=== PATIENT | male | born 1955 | race Caucasian/White ===

== ENCOUNTER 2017-07-08 04:23 | Emergency (ER) | payer OTHER ==
[2017-07-08 04:36] VITALS: O2SAT 99
--- NOTE | 2017-07-08 04:42 | C.PDOC ---
History Of Present Illness The patient presents to the ED for evaluation of acute urinary retention. Patient states his last void was late last night. Patient also reports taking Flomax at home. Patient denies fever, chills. Time Seen by Provider: 07/08/17 04:39 Chief Complaint (Nursing): Male Genitourinary History Per: Patient History/Exam Limitations: no limitations Onset/Duration Of Symptoms: Hrs Current Symptoms Are (Timing): Still Present Severity: Moderate Pain Scale Rating Of: 5 Associated Symptoms: denies: Fever, Chills Alleviating Factors: None Recent travel outside of the [place]: No Additional History Per: Patient Past Medical History Reviewed: Historical Data, Nursing Documentation, Vital Signs Vital Signs: Last Vital Signs Temp 97.8 F 07/08/17 04:26 Pulse 61 07/08/17 04:26 Resp 20 07/08/17 04:26 BP 154/72 H 07/08/17 04:26 Pulse Ox 99 07/08/17 05:24 - Medical History PMH: Benign Prostatic Hyperplasia Surgical History: No Surg Hx - [facility] Procedures INSERT INDWELLING CATH (04/18/15) Family History: States: Unknown Family Hx - Social History Hx Tobacco Use: No Hx Alcohol Use: No Hx Substance Use: No - Immunization History Hx Tetanus Toxoid Vaccination: Yes Hx Influenza Vaccination: Yes Hx Pneumococcal Vaccination: Yes Review Of Systems Constitutional: Negative for: Fever, Chills Gastrointestinal: Negative for: Nausea, Vomiting Genitourinary: Positive for: Other (urinary retention ). Negative for: Dysuria , Frequency, Hematuria Skin: Negative for: Rash, Lesions, Jaundice, Bruising Neurological: Negative for: Weakness, Numbness Physical Exam - Physical Exam Appears: Non-toxic, No Acute Distress Skin: Normal Color, Warm, Dry Head: Normacephalic Eye(s): bilateral: Normal Inspection Oral Mucosa: Moist Gastrointestinal/Abdominal: Soft, Tenderness (suprapubic ), Distention (bladder ), No Guarding, No Rebound Extremity: Normal ROM Extremity: Bilateral: Atraumatic Neurological/Psych: Oriented x3, Normal Speech, Normal Cognition Gait: Steady ED Course And Treatment O2 Sat by Pulse Oximetry: 99 (on RA) Pulse Ox Interpretation: Normal Progress Note: I've placed an 18 Fr smith without any difficulty. Pt with instant relief. Aprox 500 cc of clear urine. Pt tolerated the procedure well Disposition Counseled Patient/Family Regarding: Studies Performed, Diagnosis, Need For Followup - Disposition Referrals: Amado Ordonez MD [Staff Provider] - Disposition: HOME/ ROUTINE Disposition Time: 04:40 Condition: FAIR Instructions: Urinary Retention in Men (ED), Smith Catheter Placement and Care (ED), Urinary Leg Bag (GEN) Forms: naaya (Lithuanian) Print Language: HONG KONGER - Clinical Impression Clinical Impression: Urinary retention - Scribe Statement The provider has reviewed the documentation as recorded by the Scribe (Marianela Vargas) Provider Attestation: All medical record entries made by the Scribe were at my direction and personally dictated by me. I have reviewed the chart and agree that the record accurately reflects my personal performance of the history, physical exam, medical decision making, and the department course for this patient. I have also personally directed, reviewed, and agree with the discharge instructions and disposition.
[2017-07-08 05:34] VITALS: BP 137/84; PULSE 58; RESP 17; TEMP 97.9
== END 2017-07-08 05:37 | disposition home or self-care (01) ==
LOC: C.ER 04:23
DX: R33.8 Other retention of urine (principal)

== ENCOUNTER 2017-07-11 09:46 | Emergency (ER) | payer OTHER ==
[2017-07-11 10:03] VITALS: BP 122/72; PULSE 66; RESP 18; TEMP 97.8; O2SAT 98
--- NOTE | 2017-07-11 10:23 | C.PDOC ---
History Of Present Illness 62 yr old male presents to the ER requesting jeff removal. Patient states it was placed on 07/08 for urinary retention. States he wants it out "because I have to work today". Patient denies fever, chills, chest pain, SOB, nausea, vomiting, abdominal pain, back pain, weakness or numbness. REQUESTING JEFF REMOVAL. PLACED 07/08 FOR URINARY RETENTION. DENIES PAIN. STATES WANTS IT OUT "BC I HAVE TO WORK TODAY". NO OTHER ASSOC SX EXAM NAD ABD NEG +JEFF W LEG BAG IN PLACE, DRAINING. MDM ADVISED POSSIBLE RECUR OF RETENTION. PENDING FU DR ORDONEZ Time Seen by Provider: 07/11/17 10:06 Chief Complaint (Nursing): Male Genitourinary History Per: Patient History/Exam Limitations: no limitations Onset/Duration Of Symptoms: Days Current Symptoms Are (Timing): Still Present Past Medical History Reviewed: Historical Data, Nursing Documentation, Vital Signs Vital Signs: Last Vital Signs Temp 97.8 F 07/11/17 10:02 Pulse 66 07/11/17 10:02 Resp 18 07/11/17 10:02 BP 122/72 07/11/17 10:02 Pulse Ox 98 07/11/17 10:23 - Medical History PMH: Benign Prostatic Hyperplasia - [employer] Procedures INSERT INDWELLING CATH (04/18/15) Family History: States: No Known Family Hx - Social History Hx Tobacco Use: No Hx Alcohol Use: No Hx Substance Use: No - Immunization History Hx Tetanus Toxoid Vaccination: Yes Hx Influenza Vaccination: Yes Hx Pneumococcal Vaccination: Yes Review Of Systems Except As Marked, All Systems Reviewed And Found Negative. Constitutional: Negative for: Fever, Chills Cardiovascular: Negative for: Chest Pain Respiratory: Negative for: Shortness of Breath Gastrointestinal: Negative for: Nausea, Vomiting, Abdominal Pain Musculoskeletal: Negative for: Back Pain Neurological: Negative for: Weakness, Numbness Physical Exam - Physical Exam Appears: Non-toxic, No Acute Distress Skin: Normal Color, Warm, Dry, No Rash Head: Atraumatic, Normacephalic Respiratory: Normal Breath Sounds, No Rales, No Rhonchi, No Stridor, No Wheezing Gastrointestinal/Abdominal: Normal Exam, Soft, No Tenderness, No Guarding, No Rebound Male Genital: Other ((+) Jeff with leg bag in place, draining.) Extremity: Normal ROM, No Swelling Neurological/Psych: Oriented x3, Normal Speech, Normal Motor, Normal Sensation ED Course And Treatment O2 Sat by Pulse Oximetry: 98 (RA) Pulse Ox Interpretation: Normal Disposition Counseled Patient/Family Regarding: Diagnosis, Need For Followup - Disposition Referrals: Amado Ordonez MD [Staff Provider] - Disposition: HOME/ ROUTINE Disposition Time: 10:21 Condition: GOOD Additional Instructions: USTED HICKS SIDO ADVERTIDO DE RIESGO DE RECURRENCIA DE DIFICULTAD URINATING. CONTINUAR MEDICAMENTOS ACTUALES. SEGUIMIENTO CON UROLOGA PREVIAMENTE AVISADA Instructions: Urinary Retention in Men (ED) Forms: VILOOP (Macedonian) Print Language: TAMAZIGHT - Clinical Impression Clinical Impression: Encounter for Jeff catheter removal - Scribe Statement The provider has reviewed the documentation as recorded by the Scribe Rhona Arora Provider Attestation: All medical record entries made by the Scribe were at my direction and personally dictated by me. I have reviewed the chart and agree that the record accurately reflects my personal performance of the history, physical exam, medical decision making, and the department course for this patient. I have also personally directed, reviewed, and agree with the discharge instructions and disposition.
== END 2017-07-11 10:52 | disposition home or self-care (01) ==
LOC: C.ER 09:46
DX: Z46.6 Encounter for fitting and adjustment of urinary device (principal)

== ENCOUNTER 2018-01-26 21:29 | Emergency (ER) | payer MEDICAID, OTHER ==
[2018-01-26 22:36] VITALS: RESP 18; O2SAT 98
--- NOTE | 2018-01-26 23:55 | C.PDOC ---
History Of Present Illness 62 years old male with Hx of BPH presents to ED with complaints of urinary retention. Denies fever, chills, nausea, vomiting or any other complaints. Chief Complaint (Nursing): Male Genitourinary History Per: Patient History/Exam Limitations: no limitations Onset/Duration Of Symptoms: Hrs Current Symptoms Are (Timing): Still Present Associated Symptoms: Urinary Symptoms. denies: Fever, Chills, Nausea, Vomiting Alleviating Factors: None Recent travel outside of the [place]: No Past Medical History Reviewed: Historical Data, Nursing Documentation, Vital Signs Vital Signs: Last Vital Signs Temp 98.0 F 01/26/18 23:05 Pulse 57 L 01/26/18 23:05 Resp 18 01/26/18 23:05 BP 129/71 01/26/18 23:05 Pulse Ox 98 01/27/18 00:41 - Medical History PMH: Benign Prostatic Hyperplasia - [facility] Procedures INSERT INDWELLING CATH (04/18/15) Family History: States: Unknown Family Hx - Social History Hx Tobacco Use: No Hx Alcohol Use: No Hx Substance Use: No - Immunization History Hx Tetanus Toxoid Vaccination: Yes Hx Influenza Vaccination: Yes Hx Pneumococcal Vaccination: Yes Review Of Systems Constitutional: Negative for: Fever, Chills Gastrointestinal: Negative for: Nausea, Vomiting, Abdominal Pain, Diarrhea Genitourinary: Positive for: Other (Urinary retention) Skin: Negative for: Rash Neurological: Negative for: Weakness, Numbness Physical Exam - Physical Exam Appears: Non-toxic, No Acute Distress Skin: Normal Color, Warm, Dry Head: Atraumatic, Normacephalic Eye(s): bilateral: Normal Inspection Oral Mucosa: Moist Neck: Supple Chest: Symmetrical, No Tenderness Cardiovascular: Rhythm Regular Respiratory: Normal Breath Sounds, No Decreased Breath Sounds, No Rales, No Rhonchi, No Wheezing Gastrointestinal/Abdominal: Soft, Tenderness (suprapubic ), No Distention, Other (Distended bladder) Neurological/Psych: Oriented x3, Normal Speech, Normal Cognition ED Course And Treatment O2 Sat by Pulse Oximetry: 98 (RA) Pulse Ox Interpretation: Normal Progress Note: Patient has a leg bag and will follow up with his urologist Disposition - Disposition Referrals: Nazario Mackenzie MD [Staff Provider] - Disposition: HOME/ ROUTINE Disposition Time: 22:15 Condition: IMPROVED Additional Instructions: Thank you for letting us take care of you today. The emergency medical care you received today was directed at your acute symptoms. If you were prescribed any medication, please fill it and take as directed. It may take several days for your symptoms to resolve. Return to the Emergency Department if your symptoms worsen, do not improve, or if you have any other problems. Please contact your doctor or call one of the physicians/clinics you have been referred to that are listed on the Patient Visit Information form that is included in your discharge packet. Bring any paperwork you were given at discharge with you along with any medications you are taking to your follow up visit. Our treatment cannot replace ongoing medical care by a primary care provider (PCP) outside of the emergency department. Thank you for allowing the [facility] team to be part of your care today. Continue taking the Flomax as directed. Follow up with your urologist or the one referred to you in 2-3 days for re- evaluation and further management. Nell por dejarnos atenderlo hoy. La atencin mdica de emergencia que recibi hoy estaba dirigida a leonora sntomas agudos. Si le prescribieron algn medicamento, llnelo y tome segn las indicaciones. Leonora sntomas pueden tardar varios batista en resolverse. Regrese al Departamento de Emergencia si leonora s ntomas empeoran, no mejoran o si tiene algn otro problema. Comunquese con strickland mdico o llame a naseem de los mdicos / clnicas a los que lemus sido referido que figura en el formulario de Informacin de visita del paciente que se incluye en strickland paquete de marilia. Traiga todos los documentos que recibi al momento del marilia junto con los medicamentos que est tomando en strickland visita de seguimiento. Nuestro tratamiento no puede reemplazar la atencin mdica en curso por parte de un proveedor de atencin primaria (PCP) fuera del departamento de emergencias. Nell por permitir que el equipo de [facility] sea parte de strickland cuidado hoy. Contine tomando Flomax segn las indicaciones. Radha un seguimiento con strickland urlogo o el que se le remiti en 2 o 3 batista para mildred nueva evaluacin y administracin adicional. Instructions: Urinary Retention (DC) Forms: Gen Discharge Inst Peruvian, x.ai (Peruvian) Print Language: MONEGASQUE - Clinical Impression Clinical Impression: Urinary retention - Scribe Statement The provider has reviewed the documentation as recorded by the Scribe Booker Abbott All medical record entries made by the Scribe were at my direction and personally dictated by me. I have reviewed the chart and agree that the record accurately reflects my personal performance of the history, physical exam, medical decision making, and the department course for this patient. I have also personally directed, reviewed, and agree with the discharge instructions and disposition.
[2018-01-27 00:01] VITALS: BP 129/71; PULSE 57; TEMP 98
== END 2018-01-26 23:07 | disposition home or self-care (01) ==
LOC: C.ER 21:29
DX: N40.1 Benign prostatic hyperplasia with lower urinary tract symptoms (principal); R33.8 Other retention of urine

== ENCOUNTER 2018-03-24 06:43 | Emergency (ER) | payer MEDICAID ==
[2018-03-24 06:54] VITALS: PULSE 60; RESP 16
--- NOTE | 2018-03-24 08:15 | C.PDOC ---
History Of Present Illness 63 y/o male with hx bph, on flomax, c/o being unable to urinate since midnight and c/o lower abdominal discomfort. denies fever, chills, n/v/d. Time Seen by Provider: 03/24/18 07:27 Chief Complaint (Nursing): Male Genitourinary History Per: Patient History/Exam Limitations: no limitations Onset/Duration Of Symptoms: Hrs (7) Current Symptoms Are (Timing): Still Present Severity: Moderate Quality Of Discomfort: "Pain" Associated Symptoms: Urinary Symptoms (unable to urinate). denies: Fever, Chills, Nausea, Vomiting Past Medical History Reviewed: Historical Data, Nursing Documentation, Vital Signs Vital Signs: Last Vital Signs Temp 98.2 F 03/24/18 09:51 Pulse 60 03/24/18 09:51 Resp 16 03/24/18 09:51 BP 122/70 03/24/18 09:51 Pulse Ox 97 03/24/18 10:46 - Medical History PMH: Benign Prostatic Hyperplasia - [facility] Procedures INSERT INDWELLING CATH (04/18/15) Family History: States: Unknown Family Hx - Social History Hx Tobacco Use: No Hx Alcohol Use: No Hx Substance Use: No - Immunization History Hx Tetanus Toxoid Vaccination: Yes Hx Influenza Vaccination: Yes Hx Pneumococcal Vaccination: Yes Review Of Systems Constitutional: Negative for: Fever, Chills Respiratory: Negative for: Cough, Shortness of Breath Gastrointestinal: Positive for: Abdominal Pain (suprapubic). Negative for: Nausea, Vomiting Genitourinary: Negative for: Dysuria, Frequency, Incontinence Neurological: Negative for: Weakness Physical Exam - Physical Exam Appears: Non-toxic, No Acute Distress Skin: Warm, Dry Head: Atraumatic, Normacephalic Neck: Supple Cardiovascular: Rhythm Regular, No Murmur Respiratory: No Decreased Breath Sounds, No Wheezing Gastrointestinal/Abdominal: Soft, No Tenderness (post smith insertion), No Distention, No Guarding, No Rebound Extremity: No Pedal Edema ED Course And Treatment - Laboratory Results Result Diagrams: 03/24/18 08:40 03/24/18 08:40 O2 Sat by Pulse Oximetry: 97 Medical Decision Making Medical Decision Making: pt with urinary retention since midnight; bladder scan was done by RN with 450 ml noted; smith was inserted before my exam with suprapubic pain resolved. pt has had retention multiple times in past; last in january 2018; pt sts he saw urologist after that and next appt in in april 922 pt with normal labs, ua positive for blood; d/c home with leg bag, f/ urology. continue flomax. Disposition Counseled Patient/Family Regarding: Studies Performed, Diagnosis, Need For Followup - Disposition Referrals: Edwina Mackenzie MD [Staff Provider] - Disposition: HOME/ ROUTINE Disposition Time: 09:26 Condition: IMPROVED Additional Instructions: Please call your urologist or Dr Abdiel Mackenzie to make soonest appointment. Continue to take Flomax as prescribed. Return to ER for any worsening symptoms. Llame a strickland urlogo o al Dr. Abdiel Mackenzie para concertar la marcus ms pronto. Contin e tomando Flomax segn lo recetado. Regrese a la ann-marie de emergencias por cualquier empeoramiento de los sntomas. Instructions: Urinary Retention (DC) Forms: Gen Discharge Inst Iraqi, [facility] (Iraqi) Print Language: MEXICAN - Clinical Impression Clinical Impression: Urinary retention, Urinary catheter insertion/adjustment/removal
[2018-03-24 08:45] LABS: BASO % 0.6 % (0.0-2.0); EOS # 0.1 K/uL (0.0-0.7); EOS % 1.1 % (0.0-4.0); HEMOGLOBIN 13.6 g/dL (12.0-18.0); LYMPH # 1.1 K/uL (1.0-4.3); LYMPH % 21.7 % (20.0-40.0); MEAN CELL VOLUME 87.3 fL (80.0-94.0); MEAN CORPUSCULAR HEMOGLOBIN 28.8 pg (27.0-31.0); MEAN PLATELET VOLUME 9.2 fL (7.2-11.7); MONO # 0.3 K/uL (0.0-0.8); MONO % 5.2 % (0.0-10.0); NEUT # 3.8 K/uL (1.8-7.0); NEUT % 71.4 % (50.0-75.0); RBC 4.73 Mil/uL (4.40-5.90); RED CELL DISTRIBUTION WIDTH 13.8 % (11.5-14.5); WHITE BLOOD COUNT 5.3 K/uL (4.8-10.8)
[2018-03-24 08:51] LABS: URINE BACTERIA RARE (<OCC); URINE BILIRUBIN NEGATIVE (NEGATIVE); URINE BLOOD 2+ (NEGATIVE); URINE CLARITY Clear (Clear); URINE COLOR Straw (YELLOW); URINE GLUCOSE (UA) NORMAL (Normal); URINE LEUKOCYTE ESTERASE NEG Leu/uL (Negative); URINE PROTEIN NEGATIVE (NEGATIVE); URINE UROBILINOGEN NORMAL mg/dL (0.2-1.0)
[2018-03-24 08:58] LABS: BLOOD UREA NITROGEN 14 mg/dL (9-20); CALCIUM 9.1 mg/dl (8.6-10.4); GFR AFRICAN-AMERICAN > 60; GFR NON-AFRICAN AMERICAN > 60
[2018-03-24 09:53] VITALS: BP 122/70; TEMP 98.2
[2018-03-24 10:46] VITALS: O2SAT 97
== END 2018-03-24 09:51 | disposition home or self-care (01) ==
LOC: C.ER 06:43
DX: N40.1 Benign prostatic hyperplasia with lower urinary tract symptoms (principal); R33.8 Other retention of urine

== ENCOUNTER 2018-11-25 09:58 | Inpatient (IN) | payer MEDICAID ==
--- NOTE | 2018-11-25 11:11 | C.PDOC ---
History Of Present Illness 63 y/o male presents to the ED complaining of syncopal episode at home one hour prior to arrival. As per family, patient passed out while urinating and fell sustaining a laceration to the back of the head. Patient is currently compla ining of headache. Denies any numbness, weakness, dizziness, visual changes, nausea, vomiting or any other symptoms. Time Seen by Provider: 11/25/18 10:14 Chief Complaint (Nursing): Syncope History Per: Patient, Family History/Exam Limitations: no limitations Onset/Duration Of Symptoms: Hrs Current Symptoms Are (Timing): Still Present Number Of Syncopal Episodes: 1 Activity At Onset Of Symptoms: Standing Fall Associated With With Symptoms: Yes, Positive Injury Past Medical History Reviewed: Historical Data, Nursing Documentation, Vital Signs Vital Signs: Last Vital Signs Temp 97.8 F 11/25/18 10:05 Pulse 69 11/25/18 10:05 Resp 16 11/25/18 10:05 BP 145/88 11/25/18 10:05 Pulse Ox 100 11/25/18 10:05 - Medical History PMH: Benign Prostatic Hyperplasia Surgical History: No Surg Hx - [facility] Procedures INSERT INDWELLING CATH (04/18/15) Family History: States: No Known Family Hx - Social History Hx Tobacco Use: No Hx Alcohol Use: No Hx Substance Use: No - Immunization History Hx Tetanus Toxoid Vaccination: Yes Hx Influenza Vaccination: Yes Hx Pneumococcal Vaccination: Yes Review Of Systems Except As Marked, All Systems Reviewed And Found Negative. Eyes: Negative for: Vision Change Gastrointestinal: Negative for: Nausea, Vomiting Skin: Positive for: Other (laceration to back of head) Neurological: Positive for: Headache. Negative for: Weakness, Numbness, Dizziness Physical Exam - Physical Exam Appears: Non-toxic, No Acute Distress Skin: Warm, Dry, No Rash Head: Normacephalic, Laceration (4.5cm stellate shaped laceration to occipital scalp) Eye(s): bilateral: Normal Inspection, PERRL, EOMI Nose: Normal Oral Mucosa: Moist Neck: Normal ROM, No Midline Cervical Tenderness, No Paracervical Tenderness, Supple Chest: Symmetrical Cardiovascular: Rhythm Regular Respiratory: No Rales, No Rhonchi, No Wheezing Gastrointestinal/Abdominal: Soft, No Tenderness, No Guarding, No Rebound Back: No Vertebral Tenderness, No Decreased ROM, No Paraspinal Tenderness Extremity: Bilateral: Atraumatic, Normal Color And Temperature, Normal ROM Neurological/Psych: Oriented x3, Normal Speech, Normal Motor, Normal Sensation Gait: Other (ambulating without difficulty) ED Course And Treatment - Laboratory Results Result Diagrams: 11/25/18 11:41 11/25/18 11:41 O2 Sat by Pulse Oximetry: 100 (RA) Pulse Ox Interpretation: Normal Laceration - Laceration Repair occipital scalp Wound Length (In cm): 4.5 Description Of Wound: Stellate Wound Cleansed With: Betadine, Sterile Saline Anesthesia: Lidocaine 1% Wound Examination: Irrigated With Saline, No FB With Wound Exploration, No Tendon Injury With Wound Exploration Wound Closure: [place] (17 evaristo outside ) Suture Technique And Material Used: Vicryl (3 stitches inside ) Wound Complexity: Intermediate Medical Decision Making Medical Decision Making: Plan - CT Head - EKG - Bloodwork Laceration repaired without difficulty. Patient tolerated procedure well. Patient instructed on wound care and advised to come back for staple removal. C ase discussed with Dr. Bruno, neurologist technician semiconductor development. Patient stable and ready for discharge. Disposition - Disposition Disposition: HOSPITALIZED Condition: SERIOUS - PA / PARKING ENFORCEMENT TECHNICIAN / Resident Statement MD/DO has reviewed & agrees with the documentation as recorded. - Scribe Statement The provider has reviewed the documentation as recorded by the Scribteresa Portillo All medical record entries made by the Zoraidaibteresa were at my direction and personally dictated by me. I have reviewed the chart and agree that the record accurately reflects my personal performance of the history, physical exam, medical decision making, and the department course for this patient. I have also personally directed, reviewed, and agree with the discharge instructions and disposition.
[2018-11-25 11:52] LABS: BASO % 0.7 % (0.0-2.0); EOS # 0.2 K/uL (0.0-0.7); EOS % 3.4 % (0.0-4.0); HEMOGLOBIN 14.3 g/dL (12.0-18.0); LYMPH # 1.8 K/uL (1.0-4.3); MEAN CELL VOLUME 85.9 fL (80.0-94.0); MEAN CORPUSCULAR HEMOGLOBIN 27.8 pg (27.0-31.0); MEAN CORPUSCULAR HGB CONC 32.4 g/dL (33.0-37.0); MEAN PLATELET VOLUME 9.3 fL (7.2-11.7); MONO # 0.4 K/uL (0.0-0.8); MONO % 6.4 % (0.0-10.0); NEUT # 3.8 K/uL (1.8-7.0); NEUT % 60.5 % (50.0-75.0); RBC 5.14 Mil/uL (4.40-5.90); RED CELL DISTRIBUTION WIDTH 15.7 % (11.5-14.5); WHITE BLOOD COUNT 6.3 K/uL (4.8-10.8)
[2018-11-25 12:06] LABS: BLOOD UREA NITROGEN 13 mg/dL (9-20); CALCIUM 9.1 mg/dl (8.6-10.4); GFR NON-AFRICAN AMERICAN > 60
--- NOTE | 2018-11-25 12:09 | CT ---
Date of service: 11/25/2018 PROCEDURE: CT HEAD WITHOUT CONTRAST. HISTORY: head injury, r/o bleed COMPARISON: None available. TECHNIQUE: Axial computed tomography images were obtained through the head/brain without intravenous contrast. Radiation dose: Total exam DLP = 995.46 mGy-cm. This CT exam was performed using one or more of the following dose reduction techniques: Automated exposure control, adjustment of the mA and/or kV according to patient size, and/or use of iterative reconstruction technique. FINDINGS: BRAIN: Trace subdural hematoma is appreciated along the falx with associated local subarachnoid hemorrhage within adjacent sulci of the right frontal vertex posteriorly. No mass effect. No associated parenchymal edema. Otherwise, limited diffuse cerebral atrophy and chronic microangiopathy is seen in the cerebrum. No mass effect. VENTRICLES: Unremarkable. No hydrocephalus. CALVARIUM: No destructive bony lesion or displaced fracture identified including through the skullbase. Small laceration appears deep at the right parietal occipital scalp posteromedially with emphysema extending all the way to the outer table periosteum. PARANASAL SINUSES: Unremarkable as visualized. No significant inflammatory changes. MASTOID AIR CELLS: Unremarkable as visualized. No inflammatory changes. OTHER FINDINGS: None. IMPRESSION: Trace subdural hematoma along the superior falx extending into subarachnoid space of a few sulci of the right frontal lobe near the vertex. No associated fracture. No mass effect. Small but deep right parieto-occipital periosteal laceration. Mild age related neuro degenerative changes are appreciated as well, which are age-appropriate. Findings discussed with LILIA Reddy with written down and read back verification 11/25/2018 11:59 p.m..
[2018-11-25 12:12] LABS: ALB/GLOB RATIO 1.4 (1.0-2.1); ALBUMIN 4.4 g/dL (3.5-5.0); ALT/SGPT 13 U/L (21-72); AST/SGOT 41 U/L (17-59)
[2018-11-25 12:17] LABS: CK-MB 1.19 ng/mL (0.0-3.38)
[2018-11-25 12:34] LABS: PROTHROMBIN TIME 11.1 SECONDS (9.7-12.2)
--- NOTE | 2018-11-25 13:42 | CP.PCM.HP ---
<Ellen Adame - Last Filed: 11/25/18 18:51> History of Present Illness - History of Present Illness History of Present Illness: CC: s/p head laceration 2/2 fall Pt is a 63 year old male w/ pmhx of BPH w/ associated urinary retention, who presents to the ED for evaluation of head laceration 2/2 syncopal event. Pt reports he got up from bed to urinate and felt light headed for a moment. He then waited and it passed. He then continued to walk to the restroom, and as soon as he started urinated he felt light-headed once again and fainted. Pt reports he woke up on the bathroom floor with flood on the back of his head, and then walked to his son's room for help. Patient said he has a 10 year hx of BPH, and his flomax was recently doubled; he is also s/p prostate bx for further evaluation, POD #3. Pt denies prior syncopal events, headache, chest pain, palpitations, SOB, nausea, diarrhea. Pt does report chiquita colored urine s/p bx, but improving. pmhx: BPH pshx: prostate bx 11/22/18 meds flomax 0.8mg, finasteride 5mg allergies: NKDA sochx: denies famhx: DM Present on Admission - Present on Admission Any Indicators Present on Admission: No Review of Systems - Constitutional Constitutional: absent: Frequent Falls, Headache, Night Sweats - EENT Eyes: absent: Blurred Vision - Cardiovascular Cardiovascular: Syncope. absent: Chest Pain, Irregular Heart Rhythm, Palpitati ons, Rapid Heart Rate - Respiratory Respiratory: absent: Dyspnea - Gastrointestinal Gastrointestinal: absent: Diarrhea, Nausea - Genitourinary Genitourinary: Hematuria (s/p bx). absent: Dysuria - Musculoskeletal Musculoskeletal: absent: Muscle Weakness, Numbness - Neurological Neurological: Syncope. absent: Abnormal Gait, Confusion, Dizziness, Frequent Falls, Vertigo Past Patient History - Infectious Disease Hx of Infectious Diseases: None - Past Social History Smoking Status: Never Smoked - GENITOURINARY/GYNECOLOGICAL Hx Genitourinary Disorders: Yes - PSYCHIATRIC Hx Substance Use: No - SURGICAL HISTORY Hx Surgeries: No - ANESTHESIA Hx Anesthesia: No Meds Allergies/Adverse Reactions: Allergies Allergy/AdvReac Type Severity Reaction Status Date / Time No Known Allergies Allergy Verified 11/25/18 10:08 Physical Exam - Constitutional Appears: Non-toxic, No Acute Distress - Head Exam Head Exam: NORMOCEPHALIC Additional comments: right occipital horizontal laceration~3cm wide, 8mm deep. Not actively bleeding. - Eye Exam Eye Exam: EOMI, Normal appearance Pupil Exam: NORMAL ACCOMODATION - ENT Exam ENT Exam: Normal Exam - Neck Exam Neck exam: Positive for: Normal Inspection - Respiratory Exam Respiratory Exam: Clear to Auscultation Bilateral, NORMAL BREATHING PATTERN - Cardiovascular Exam Cardiovascular Exam: REGULAR RHYTHM, +S1, +S2. absent: Bradycardia, Tachycardia - GI/Abdominal Exam GI & Abdominal Exam: Normal Bowel Sounds, Soft. absent: Distended, Tenderness - Extremities Exam Extremities exam: Positive for: normal inspection. Negative for: calf tenderness, pedal edema - Neurological Exam Neurological exam: Alert, Oriented x3 Additional comments: 5/5 motor strength throughout field of vision intact - Psychiatric Exam Psychiatric exam: Normal Affect, Normal Mood - Skin Skin Exam: Dry, Normal Color, Warm Additional comments: skin visibly dry Results - Vital Signs Recent Vital Signs: Last Vital Signs Temp 97.8 F 11/25/18 10:05 Pulse 69 11/25/18 10:05 Resp 16 11/25/18 10:05 BP 145/88 11/25/18 10:05 Pulse Ox 100 11/25/18 11:18 - Labs Result Diagrams: 11/25/18 11:41 11/25/18 11:41 Labs: Laboratory Results - last 24 hr 11/25/18 11/25/18 11/25/18 10:10 11:41 11:41 WBC 6.3 RBC 5.14 Hgb 14.3 Hct 44.2 MCV 85.9 MCH 27.8 MCHC 32.4 L RDW 15.7 H Plt Count 203 MPV 9.3 Neut % (Auto) 60.5 Lymph % (Auto) 29.0 Mckean % (Auto) 6.4 Eos % (Auto) 3.4 Baso % (Auto) 0.7 Neut # (Auto) 3.8 Lymph # (Auto) 1.8 Mckean # (Auto) 0.4 Eos # (Auto) 0.2 Baso # (Auto) 0.0 PT INR APTT Sodium 136 Potassium 4.9 Chloride 100 Carbon Dioxide 28 Anion Gap 12 BUN 13 Creatinine 0.9 Est GFR ( Amer) > 60 Est GFR (Non-Af Amer) > 60 POC Glucose (mg/dL) 134 H Random Glucose 120 H Calcium 9.1 Total Bilirubin 1.0 AST 41 ALT 13 L D Alkaline Phosphatase 66 Total Creatine Kinase 116 CK-MB (Mass) 1.19 Troponin I < 0.0120 Total Protein 7.6 Albumin 4.4 Globulin 3.1 Albumin/Globulin Ratio 1.4 11/25/18 12:20 WBC RBC Hgb Hct MCV MCH MCHC RDW Plt Count MPV Neut % (Auto) Lymph % (Auto) Mckean % (Auto) Eos % (Auto) Baso % (Auto) Neut # (Auto) Lymph # (Auto) Mckean # (Auto) Eos # (Auto) Baso # (Auto) PT 11.1 INR 1.0 APTT 29 Sodium Potassium Chloride Carbon Dioxide Anion Gap BUN Creatinine Est GFR ( Amer) Est GFR (Non-Af Amer) POC Glucose (mg/dL) Random Glucose Calcium Total Bilirubin AST ALT Alkaline Phosphatase Total Creatine Kinase CK-MB (Mass) Troponin I Total Protein Albumin Globulin Albumin/Globulin Ratio Assessment & Plan - Assessment and Plan (Free Text) Assessment: 63 year old male w/ pmhx of BPH admitted for evaluation of syncopal event Plan: S/P Syncopal Event Rule out cardiac origin, possibly vagal or volume status related -monitor on telemetry -f/u JACOB x2 -f/u echo -Tylenol 650mg prn pain -NS @100 Subdural Hematoma -Head CT: trace subdural hematoma. Small but deep right parieto-occipital periosteal laceration -f/u am CT head to look for acute changes -AC contraindicated 2/2 bleed BPH -continue home meds flomax 0.8mg, Finasteride 5mg Ppx -VTE: SCDs, AC contraindicated 2/2 subdural HICKS -GI: not indicated Discussed with Dr. Mcfadden -Ellen Adame, PGY-1 <Haroon Mcfadden - Last Filed: 11/25/18 19:24> Results - Vital Signs Recent Vital Signs: Last Vital Signs Temp 98.1 F 11/25/18 15:00 Pulse 60 11/25/18 16:00 Resp 20 11/25/18 15:00 BP 120/68 11/25/18 15:00 Pulse Ox 100 11/25/18 16:09 - Labs Result Diagrams: 11/25/18 11:41 11/25/18 11:41 Labs: Laboratory Results - last 24 hr 11/25/18 11/25/18 11/25/18 10:10 11:41 11:41 WBC 6.3 RBC 5.14 Hgb 14.3 Hct 44.2 MCV 85.9 MCH 27.8 MCHC 32.4 L RDW 15.7 H Plt Count 203 MPV 9.3 Neut % (Auto) 60.5 Lymph % (Auto) 29.0 Mckean % (Auto) 6.4 Eos % (Auto) 3.4 Baso % (Auto) 0.7 Neut # (Auto) 3.8 Lymph # (Auto) 1.8 Mckean # (Auto) 0.4 Eos # (Auto) 0.2 Baso # (Auto) 0.0 PT INR APTT Sodium 136 Potassium 4.9 Chloride 100 Carbon Dioxide 28 Anion Gap 12 BUN 13 Creatinine 0.9 Est GFR ( Amer) > 60 Est GFR (Non-Af Amer) > 60 POC Glucose (mg/dL) 134 H Random Glucose 120 H Calcium 9.1 Total Bilirubin 1.0 AST 41 ALT 13 L D Alkaline Phosphatase 66 Total Creatine Kinase 116 CK-MB (Mass) 1.19 Troponin I < 0.0120 Total Protein 7.6 Albumin 4.4 Globulin 3.1 Albumin/Globulin Ratio 1.4 11/25/18 11/25/18 12:20 16:50 WBC RBC Hgb Hct MCV MCH MCHC RDW Plt Count MPV Neut % (Auto) Lymph % (Auto) Mckean % (Auto) Eos % (Auto) Baso % (Auto) Neut # (Auto) Lymph # (Auto) Mckean # (Auto) Eos # (Auto) Baso # (Auto) PT 11.1 INR 1.0 APTT 29 Sodium Potassium Chloride Carbon Dioxide Anion Gap BUN Creatinine Est GFR ( Amer) Est GFR (Non-Af Amer) POC Glucose (mg/dL) Random Glucose Calcium Total Bilirubin AST ALT Alkaline Phosphatase Total Creatine Kinase 94 CK-MB (Mass) 1.18 Troponin I < 0.0120 Total Protein Albumin Globulin Albumin/Globulin Ratio Attending/Attestation - Attestation I have personally seen and examined this patient.: Yes I have fully participated in the care of the patient.: Yes I have reviewed all pertinent clinical information: Yes Notes (Text): 11/25/18 19:20 Medical attending: Patient was seen and examined by me. Agree with the above note by the resident The patient was not in any acute distress when I came and saw him The patient as reported above had gone to the bathroom and as he was urinating reportedly had a syncopal episode and he was not sure how long he was out for. He then got back up and found his family member and they went to the hospital. He looked very well when we saw him. He had a CT scan suggestive of a small bleed, which the ER reportedly spoke with surgery and for now we will monitor and repeat the CT of the head again There will be an echo as well as additional cardiac enyzmes The patient is taking two tablets of flomax and one of finasteride for his BPH and I get the feeling he is low volume status and then ontop of that had a valsalva like moment and therefore passed out in the bathroom. Hopefully he will remains asymptomatic with IVF and if the studies are negative can be DC soon Haroon Mcfadden
[2018-11-25 17:23] LABS: CK-MB 1.18 ng/mL (0.0-3.38)
[2018-11-25 23:19] LABS: CK-MB 1.01 ng/mL (0.0-3.38)
[2018-11-26] MEDS: Sodium Chloride 0.9% 1,000 ML IV SCH ×3 (03:42→20:00)
--- NOTE | 2018-11-26 07:32 | CP.PCM.PN ---
Subjective - Date & Time of Evaluation Date of Evaluation: 11/26/18 Time of Evaluation: 10:00 - Subjective Subjective: PGY1 Medicine progress note for Dr. Garcia Pt was seen and examined at bedside. Pt is resting comfortably. No acute events overnight. Pt has no complaints at this time. Denies fever, chills, headache, dizziness, numbness or tingling, visual changes, chest pain, sob, palpitations, abdominal pain, n/v/d, hematuria, dysuria. Pt describes his syncopal episode as feeling dizzy while on the phone in the bathroom, associated with some "burning" sensation in the stomach. Pt denies any seizure activity at that time, and denies feeling dizzy prior to this episode. Denies taking beta blockers. Objective - Vital Signs/Intake and Output Vital Signs (last 24 hours): Temp Pulse Resp BP Pulse Ox 98.6 F 52 L 20 122/72 98 11/25/18 23:30 11/26/18 03:58 11/25/18 23:30 11/25/18 23:30 11/25/18 23:30 Intake and Output: 11/26/18 11/26/18 06:59 18:59 Intake Total 1850 Output Total 300 Balance 1550 - Medications Medications: Current Medications Acetaminophen (Tylenol 325mg Tab) 650 mg PO Q6 PRN PRN Reason: Pain, moderate (4-7) Finasteride (Proscar) 5 mg PO DAILY [facility] Sodium Chloride (Sodium Chloride 0.9%) 1,000 mls @ 100 mls/hr IV .Q10H [facility] Last Admin: 11/26/18 03:42 Dose: 100 mls/hr Tamsulosin HCl (Flomax) 0.8 mg PO HS [facility] Last Admin: 11/25/18 21:20 Dose: Not Given - Labs Labs: 11/25/18 11:41 11/25/18 11:41 PT 11.1 SECONDS (9.7-12.2) 11/25/18 12:20 INR 1.0 11/25/18 12:20 APTT 29 SECONDS (21-34) 11/25/18 12:20 - Additional Findings Additional findings: - Constitutional Appears: Non-toxic, No Acute Distress - Head Exam Head Exam: NORMOCEPHALIC Additional comments: Right occipital horizontal laceration approximately 3cm wide with evaristo in place. No active bleeding. Minimally tender. No drainage or surrounding fluctuance. - Eye Exam Eye Exam: EOMI, Normal appearance Pupil Exam: NORMAL ACCOMODATION - ENT Exam ENT Exam: Normal Exam. No lacerations of the tongue or mucuosa. Poor dentition. - Neck Exam Neck exam: Positive for: Normal Inspection - Respiratory Exam Respiratory Exam: Clear to Auscultation Bilateral, NORMAL BREATHING PATTERN - Cardiovascular Exam Cardiovascular Exam: REGULAR RHYTHM, +S1, +S2. absent: Bradycardia, Tachycardia - GI/Abdominal Exam GI & Abdominal Exam: Normal Bowel Sounds, Soft. absent: Distended, Tenderness - Extremities Exam Extremities exam: Positive for: normal inspection. Negative for: calf tenderness, pedal edema - Neurological Exam Neurological exam: Alert, Oriented x3 Additional comments: CN2-12 grossly intact 5/5 motor strength throughout No tremors - Psychiatric Exam Psychiatric exam: Normal Affect, Normal Mood - Skin Skin Exam: Dry, Normal Color, Warm Assessment and Plan - Assessment and Plan (Free Text) Assessment: 63 year old male w/ pmhx of BPH admitted for evaluation of syncopal event Plan: S/P Syncopal Event; r/o cardiac origin, possibly vagal or volume status related, or orthostatic BP secondary to BPH meds Monitor on telemetry Pt remains bradycardic in the high 50s, but asymptomatic at this time. Troponin x3 is negative Tylenol 650mg prn pain NS @100 for hypotension Lying BP: 100/58; Sitting BP: 107/68; Standing BP: 108/65 Echocardiogram shows normal LV function (68.4% EF), no diastolic dysfunction. Mild MR, TR, PI with RVSP of 28. Cardiology, Dr. Terry, consulted. Recommendations appreciated. Neurology, Dr. Vázquez, consulted. Recommendations appreciated. Subdural Hematoma s/p fall Pt asymptomatic at this time Head CT: trace subdural hematoma. Small but deep right parieto-occipital perios teal laceration AC contraindicated 2/[address] shows stable to slightly decreased subdural hematoma. Seizure precautions Neurochecks q4h Fall precautions BPH Continue home meds flomax 0.8mg, Finasteride 5mg S/p prostate biopsy 11/22, POD#4. Pt without complaints at this time No need for uroogy consult at this time Ppx VTE: SCDs, AC contraindicated 2/2 subdural HICKS GI: not indicated Case discussed with Dr. Jose Johnson PGY1
[2018-11-26 08:00] LABS: BASO % 0.6 % (0.0-2.0); EOS # 0.1 K/uL (0.0-0.7); EOS % 1.7 % (0.0-4.0); HEMOGLOBIN 13.5 g/dL (12.0-18.0); LYMPH # 1.8 K/uL (1.0-4.3); MEAN CELL VOLUME 84.2 fL (80.0-94.0); MEAN CORPUSCULAR HEMOGLOBIN 27.7 pg (27.0-31.0); MEAN CORPUSCULAR HGB CONC 32.9 g/dL (33.0-37.0); MEAN PLATELET VOLUME 8.9 fL (7.2-11.7); MONO # 0.5 K/uL (0.0-0.8); MONO % 7.5 % (0.0-10.0); NEUT # 4.6 K/uL (1.8-7.0); NEUT % 64.2 % (50.0-75.0); RBC 4.86 Mil/uL (4.40-5.90); RED CELL DISTRIBUTION WIDTH 15.1 % (11.5-14.5); WHITE BLOOD COUNT 7.1 K/uL (4.8-10.8)
[2018-11-26 08:17] LABS: ALB/GLOB RATIO 1.3 (1.0-2.1); ALBUMIN 3.7 g/dL (3.5-5.0); ALT/SGPT 19 U/L (21-72); AST/SGOT 23 U/L (17-59); BLOOD UREA NITROGEN 14 mg/dL (9-20); CALCIUM 8.7 mg/dl (8.6-10.4); GFR NON-AFRICAN AMERICAN > 60
--- NOTE | 2018-11-26 14:21 | CARD ---
APPROVED REPORT Date of service: 11/25/2018 EKG Measurement Heart [id number] <Conclusion> Sinus bradycardia Early repolarization Otherwise normal ECG
--- NOTE | 2018-11-26 14:22 | CT ---
Date of service: 11/26/2018 PROCEDURE: CT HEAD WITHOUT CONTRAST. HISTORY: evaluate bleed COMPARISON: Noncontrast head CT performed 11/25/18 TECHNIQUE: Axial computed tomography images were obtained through the head/brain without intravenous contrast. Radiation dose: Total exam DLP = 1003.88 mGy-cm. This CT exam was performed using one or more of the following dose reduction techniques: Automated exposure control, adjustment of the mA and/or kV according to patient size, and/or use of iterative reconstruction technique. FINDINGS: HEMORRHAGE: Trace subdural and local associated subarachnoid hemorrhage within the adjacent sulci of the right frontal vertex posteriorly, stable to slightly decreased in extent. BRAIN: No mass effect or edema. Intracranial atherosclerosis. Mild scattered white matter hypodensities, which are nonspecific, but often seen with chronic microvascular ischemic disease. Please note that MRI with diffusion imaging is more sensitive in the detection of acute ischemic event. VENTRICLES: No hydrocephalus. CALVARIUM: Unremarkable. PARANASAL SINUSES: Partial opacification of the visualized right anterior greater than left posterior ethmoid air cells. Correlate clinically for sinusitis. MASTOID AIR CELLS: Fluid/opacification of the right mastoid air cells. Correlate clinically for mastoiditis. The left mastoid air cells appear clear. OTHER FINDINGS: Posterior right scalp skin evaristo. IMPRESSION: Trace subdural and local associated subarachnoid hemorrhage within the adjacent sulci of the right frontal vertex posteriorly, stable to slightly decreased in extent. Nonspecific white matter changes. Posterior right scalp skin evaristo. Fluid/opacification of the right mastoid air cells. Correlate clinically for mastoiditis. Partial opacification of the visualized right anterior greater than left posterior ethmoid air cells. Correlate clinically for sinusitis.
--- NOTE | 2018-11-26 15:00 | CARD ---
APPROVED REPORT Date of service: 11/26/2018 EXAM: Two-dimensional and M-mode echocardiogram with Doppler and color Doppler. Other Information Quality : GoodRhythm : INDICATION s/p syncopal 2D DIMENSIONS IVSd0.8 (0.7-1.1cm)Aortic Root (2D)2.7 (2.0-3.7cm) LVDd4.6 (3.9-5.9cm)PWd1.1 (0.7-1.1cm) LA Pkzils42 (18-58mL)LVDs2.9 (2.5-4.0cm) FS (%) 38.1 %LVEF (%)68.4 (>50%) LVEF (Walsh's)72.88 %IVC0.00 cm M-Mode DIMENSIONS RVDd2.78 (2.1-3.2cm)Left Atrium (MM)3.44 (2.5-4.0cm) IVSd0.91 (0.7-1.1cm)Aortic Root3.13 (2.2-3.7cm) LVDd4.51 (4.0-5.6cm)Aortic Cusp Exc.2.16 (1.5-2.0cm) PWd1.08 (0.7-1.1cm)FS (%) 42 % LVDs2.64 (2.0-3.8cm)TAPSE25.34 cm LVEF (%)73 (>50%) Mitral Valve MV E Eikeccez47.0cm/sMV A Uxewjhsw48.9cm/sE/A ratio1.2 WILM477.88 cm/s TDI Lateral E' Peak V11.19cm/sMedial E' Peak V7.77cm/sE/Lateral E'4.2 E/Medial E'6.0 Tricuspid Valve TR Peak Sxpthjsx712cd/sTR Peak Gr.[id number] <Conclusion> normal size la,lv & ra rv. normal lv wall motion,thickness,systolic & diastolic funciton with lvef of 65-70%. normal aortic,mitral,tv & pv. mild mr,tr & pi with normal pulmonary systolic pressures of 28 mm of hg. normal size aortic root. no pericardial effusion seen.
[2018-11-27 01:48] VITALS: RESP 20
[2018-11-27] MEDS: Sodium Chloride 0.9% 1,000 ML IV SCH (05:04)
--- NOTE | 2018-11-27 06:01 | CP.PCM.CON ---
History of Present Illness - History of Present Illness History of Present Illness: Sandip Ramirez PGY1, Consult Note for Dr Terry Pt is a 63 year old male with a PMH of BPH and urinary retention who presents to the ED for evaluation of head laceration 2/2 syncopal event. Pt reports he got up from bed to urinate and felt light headed and fainted. Pt reports he woke up on the bathroom floor with flood on the back of his head. Pt reports some dark urine recently. Past Patient History - Infectious Disease Hx of Infectious Diseases: None - Past Social History Smoking Status: Never Smoked - MUSCULOSKELETAL/RHEUMATOLOGICAL Hx Falls: No - GENITOURINARY/GYNECOLOGICAL Hx Genitourinary Disorders: Yes - PSYCHIATRIC Hx Substance Use: No - SURGICAL HISTORY Hx Surgeries: No - ANESTHESIA Hx Anesthesia: No Meds Allergies/Adverse Reactions: Allergies Allergy/AdvReac Type Severity Reaction Status Date / Time No Known Allergies Allergy Verified 11/25/18 10:08 - Medications Medications: Current Medications Acetaminophen (Tylenol 325mg Tab) 650 mg PO Q6 PRN PRN Reason: Pain, moderate (4-7) Finasteride (Proscar) 5 mg PO DAILY [facility] Last Admin: 11/26/18 10:39 Dose: 5 mg Sodium Chloride (Sodium Chloride 0.9%) 1,000 mls @ 100 mls/hr IV .Q10H [facility] Last Admin: 11/27/18 05:04 Dose: 100 mls/hr Tamsulosin HCl (Flomax) 0.8 mg PO HS [facility] Last Admin: 11/26/18 23:08 Dose: 0.8 mg Physical Exam - Head Exam Additional comments: laceration with evaristo on posterior aspect of head - Eye Exam Eye Exam: EOMI - Respiratory Exam Respiratory Exam: Clear to Auscultation Bilateral. absent: Wheezes, Respiratory Distress - Cardiovascular Exam Cardiovascular Exam: RRR, +S1, +S2. absent: Diastolic murmur, Systolic Murmur - GI/Abdominal Exam GI & Abdominal Exam: Normal Bowel Sounds, Soft - Extremities Exam Extremities exam: Positive for: full ROM. Negative for: pedal edema, tenderness - Neurological Exam Neurological exam: Alert, Oriented x3 - Psychiatric Exam Psychiatric exam: Normal Affect, Normal Mood - Skin Skin Exam: Dry, Intact, Normal Color Results - Vital Signs Recent Vital Signs: Last Vital Signs Temp 98.0 F 11/27/18 01:00 Pulse 50 L 11/27/18 04:07 Resp 20 11/27/18 01:00 BP 114/65 11/27/18 01:00 Pulse Ox 99 11/27/18 01:00 - Labs Result Diagrams: 11/26/18 07:10 11/26/18 07:10 Labs: Laboratory Results - last 24 hr 11/26/18 11/26/18 07:10 07:10 WBC 7.1 RBC 4.86 Hgb 13.5 Hct 40.9 MCV 84.2 MCH 27.7 MCHC 32.9 L RDW 15.1 H Plt Count 205 MPV 8.9 Neut % (Auto) 64.2 Lymph % (Auto) 26.0 Clay % (Auto) 7.5 Eos % (Auto) 1.7 Baso % (Auto) 0.6 Neut # (Auto) 4.6 Lymph # (Auto) 1.8 Clay # (Auto) 0.5 Eos # (Auto) 0.1 Baso # (Auto) 0.0 Sodium 138 Potassium 4.1 Chloride 105 Carbon Dioxide 26 Anion Gap 10 BUN 14 Creatinine 0.9 Est GFR ( Amer) > 60 Est GFR (Non-Af Amer) > 60 Random Glucose 92 D Calcium 8.7 Phosphorus 3.6 Magnesium 1.8 Total Bilirubin 0.9 AST 23 ALT 19 L D Alkaline Phosphatase 71 Total Protein 6.4 Albumin 3.7 Globulin 2.7 Albumin/Globulin Ratio 1.3 Assessment & Plan - Assessment and Plan (Free Text) Assessment: S/P Syncopal Event Subdural Hematoma BPH Plan: EKG free of arrhythmia ECHO EF 68% Head CT: trace subdural and local associated subarachnoid hemorrhage Pt seen, examined, assessment and plan discussed with Dr Harrison Ramirez PGY1, Internal Medicine Residency - Date & Time Date: 11/27/18 Time: 06:03
--- NOTE | 2018-11-27 06:45 | CP.PCM.PN ---
Objective - Vital Signs/Intake and Output Vital Signs (last 24 hours): Temp Pulse Resp BP Pulse Ox 98.0 F 50 L 20 114/65 99 11/27/18 01:00 11/27/18 04:07 11/27/18 01:00 11/27/18 01:00 11/27/18 01:00 Intake and Output: 11/26/18 11/27/18 18:59 06:59 Intake Total 500 Output Total 200 Balance 300 - Medications Medications: Current Medications Acetaminophen (Tylenol 325mg Tab) 650 mg PO Q6 PRN PRN Reason: Pain, moderate (4-7) Finasteride (Proscar) 5 mg PO DAILY [facility] Last Admin: 11/26/18 10:39 Dose: 5 mg Sodium Chloride (Sodium Chloride 0.9%) 1,000 mls @ 100 mls/hr IV .Q10H [facility] Last Admin: 11/27/18 05:04 Dose: 100 mls/hr Tamsulosin HCl (Flomax) 0.8 mg PO HS [facility] Last Admin: 11/26/18 23:08 Dose: 0.8 mg - Labs Labs: 11/26/18 07:10 11/26/18 07:10 PT 11.1 SECONDS (9.7-12.2) 11/25/18 12:20 INR 1.0 11/25/18 12:20 APTT 29 SECONDS (21-34) 11/25/18 12:20
[2018-11-27 07:25] LABS: BASO % 0.8 % (0.0-2.0); EOS # 0.2 K/uL (0.0-0.7); EOS % 3.6 % (0.0-4.0); HEMOGLOBIN 13.1 g/dL (12.0-18.0); LYMPH # 1.9 K/uL (1.0-4.3); LYMPH % 30.5 % (20.0-40.0); MEAN CELL VOLUME 84.6 fL (80.0-94.0); MEAN CORPUSCULAR HEMOGLOBIN 28.1 pg (27.0-31.0); MEAN CORPUSCULAR HGB CONC 33.2 g/dL (33.0-37.0); MEAN PLATELET VOLUME 8.9 fL (7.2-11.7); MONO # 0.5 K/uL (0.0-0.8); MONO % 7.8 % (0.0-10.0); NEUT # 3.5 K/uL (1.8-7.0); NEUT % 57.3 % (50.0-75.0); NRBC % 0.1 % (0.0-2.0); RBC 4.67 Mil/uL (4.40-5.90); RED CELL DISTRIBUTION WIDTH 15.6 % (11.5-14.5); WHITE BLOOD COUNT 6.1 K/uL (4.8-10.8)
[2018-11-27 07:39] LABS: ALB/GLOB RATIO 1.3 (1.0-2.1); ALBUMIN 3.6 g/dL (3.5-5.0); ALT/SGPT 22 U/L (21-72); AST/SGOT 24 U/L (17-59); BLOOD UREA NITROGEN 15 mg/dL (9-20); CALCIUM 8.7 mg/dl (8.6-10.4); GFR NON-AFRICAN AMERICAN > 60
[2018-11-27 09:00] VITALS: BP 129/75; PULSE 55; TEMP 97.5; O2SAT 95
--- NOTE | 2018-11-27 09:54 | CP.PCM.DIS ---
Provider - Provider Date of Admission: 11/25/18 13:10 Attending physician: Michelle Garcia DO Consults: 11/26/18 14:56 Cardiology Consult Routine Comment: ' Consulting Provider: Jorge Terry Consulting Physician: Jorge Terry Reason for Consult: s/p fall, eval, bradycardia 11/26/18 14:57 Neurology Consult Routine Comment: Consulting Provider: Mir Vázquez Consulting Physician: Mir Vázquez Reason for Consult: s/p unwitnessed fall, syncope, subdural Time Spent in preparation of Discharge (in minutes): 30 Hospital Course - Lab Results Lab Results: Most Recent Lab Values WBC 6.1 K/uL (4.8-10.8) 11/27/18 07:05 RBC 4.67 Mil/uL (4.40-5.90) 11/27/18 07:05 Hgb 13.1 g/dL (12.0-18.0) 11/27/18 07:05 Hct 39.5 % (35.0-51.0) 11/27/18 07:05 MCV 84.6 fL (80.0-94.0) 11/27/18 07:05 MCH 28.1 pg (27.0-31.0) 11/27/18 07:05 MCHC 33.2 g/dL (33.0-37.0) 11/27/18 07:05 RDW 15.6 % (11.5-14.5) H 11/27/18 07:05 Plt Count 188 K/uL (130-400) 11/27/18 07:05 MPV 8.9 fL (7.2-11.7) 11/27/18 07:05 Neut % (Auto) 57.3 % (50.0-75.0) 11/27/18 07:05 Lymph % (Auto) 30.5 % (20.0-40.0) 11/27/18 07:05 [place] % (Auto) 7.8 % (0.0-10.0) 11/27/18 07:05 Eos % (Auto) 3.6 % (0.0-4.0) 11/27/18 07:05 Baso % (Auto) 0.8 % (0.0-2.0) 11/27/18 07:05 Neut # (Auto) 3.5 K/uL (1.8-7.0) 11/27/18 07:05 Lymph # (Auto) 1.9 K/uL (1.0-4.3) 11/27/18 07:05 [place] # (Auto) 0.5 K/uL (0.0-0.8) 11/27/18 07:05 Eos # (Auto) 0.2 K/uL (0.0-0.7) 11/27/18 07:05 Baso # (Auto) 0.0 K/uL (0.0-0.2) 11/27/18 07:05 PT 11.1 SECONDS (9.7-12.2) 11/25/18 12:20 INR 1.0 11/25/18 12:20 APTT 29 SECONDS (21-34) 11/25/18 12:20 Sodium 137 mmol/L (132-148) 11/27/18 07:05 Potassium 3.8 mmol/L (3.6-5.2) 11/27/18 07:05 Chloride 106 mmol/L (98-107) 11/27/18 07:05 Carbon Dioxide 27 mmol/L (22-30) 11/27/18 07:05 Anion Gap 8 (10-20) L 11/27/18 07:05 BUN 15 mg/dL (9-20) 11/27/18 07:05 Creatinine 0.8 mg/dL (0.8-1.5) 11/27/18 07:05 Est GFR ( Amer) > 60 11/27/18 07:05 Est GFR (Non-Af Amer) > 60 11/27/18 07:05 POC Glucose (mg/dL) 134 mg/dL (65-110) H 11/25/18 10:10 Random Glucose 95 mg/dL (75-110) 11/27/18 07:05 Calcium 8.7 mg/dl (8.6-10.4) 11/27/18 07:05 Phosphorus 3.6 mg/dL (2.5-4.5) 11/26/18 07:10 Magnesium 1.8 mg/dL (1.6-2.3) 11/26/18 07:10 Total Bilirubin 0.6 mg/dL (0.2-1.3) 11/27/18 07:05 AST 24 U/L (17-59) 11/27/18 07:05 ALT 22 U/L (21-72) 11/27/18 07:05 Alkaline Phosphatase 73 U/L (38-126) 11/27/18 07:05 Total Creatine Kinase 85 U/L (55-170) 11/25/18 22:40 CK-MB (Mass) 1.01 ng/mL (0.0-3.38) 11/25/18 22:40 Troponin I < 0.0120 ng/mL (0.00-0.120) 11/25/18 22:40 Total Protein 6.3 g/dL (6.3-8.3) 11/27/18 07:05 Albumin 3.6 g/dL (3.5-5.0) 11/27/18 07:05 Globulin 2.8 gm/dL (2.2-3.9) 11/27/18 07:05 Albumin/Globulin Ratio 1.3 (1.0-2.1) 11/27/18 07:05 - Hospital Course Hospital Course: On admission: Pt is a 63 year old male w/ pmhx of BPH w/ associated urinary retention, who presents to the ED for evaluation of head laceration 2/2 syncopal event. Pt reports he got up from bed to urinate and felt light headed for a moment. He then waited and it passed. He then continued to walk to the restroom, and as soon as he started urinated he felt light-headed once again and fainted. Pt reports he woke up on the bathroom floor with flood on the back of his head, and then walked to his son's room for help. Patient said he has a 10 year hx of BPH, and his flomax was recently doubled; he is also s/p prostate bx for further evaluation, POD #3. Pt denies prior syncopal events, headache, chest pain, palpitations, SOB, nausea, diarrhea. Pt does report chiquita colored urine s/p bx, but improving. Hospital course: Pt received evaristo to the scalp in the ED. Pt's BPH medications were continued. Pt was placed on telemetry, and continued to have asymptomatic bradycardia during hospital stay. Troponin x3 was negative. Echocardiogram shows normal LV function (68.4% EF), no diastolic dysfunction. Mild MR, TR, PI with RVSP of 28. Pt was started on IVF for treatment of hypotension. Original Head CT showed trace subdural hematoma. Cardiology, Dr. Terry, consulted. Neurology, Dr. Vázquez, consulted. Repeat Head CT shows stable to slightly decreased subdural hematoma. Pt was symptomatic and had no complaints during hospital stay. Translation was obtained via [employer] environmental field team member. On 11/27, pt requested to leave the hospital because he "feels fine" and would like to follow up with his PMD in [place]. I informed him that he has ont completed the syncopal work up an still needs a carotid ultrasound. He is adamant that he would like to leave. I informed him of the risks of leave the hospital against medical advice, including but not limited to infection, worsening of intracranial bleed, seizures, cardiopulmonary decompensation, . Pt is adamant that he would like to leave at this time. I instructed the pt not to take aspirin as it may worsen the intracranial bleed. I instructed him to look for signs of worsening intracranial bleed, including but not limited to: sedation, seizures, falls, lightheadedness, dizziness. Pt understands and agrees, he reports that he will follow up with his PMD and go to the ER if symptoms worsen. He also reports that he will follow up with his urologist on 12/13 for prostate biopsy follow up. I instructed him to go to his urologist or nearest ER if he develops changes in urine. Discharge Exam - Additional Findings Additional findings: - Constitutional Appears: Non-toxic, No Acute Distress - Head Exam Head Exam: NORMOCEPHALIC Additional comments: Right occipital horizontal laceration approximately 3cm wide with evaristo in place. No active bleeding. Minimally tender. No drainage or surrounding fluctuance. - Eye Exam Eye Exam: EOMI, Normal appearance Pupil Exam: NORMAL ACCOMODATION - ENT Exam ENT Exam: Normal Exam. No lacerations of the tongue or mucuosa. Poor dentition. - Neck Exam Neck exam: Positive for: Normal Inspection - Respiratory Exam Respiratory Exam: Clear to Auscultation Bilateral, NORMAL BREATHING PATTERN - Cardiovascular Exam Cardiovascular Exam: REGULAR RHYTHM, +S1, +S2. absent: Bradycardia, Tachycardia - GI/Abdominal Exam GI & Abdominal Exam: Normal Bowel Sounds, Soft. absent: Distended, Tenderness - Extremities Exam Extremities exam: Positive for: normal inspection. Negative for: calf tenderness, pedal edema - Neurological Exam Neurological exam: Alert, Oriented x3 Additional comments: CN2-12 grossly intact 5/5 motor strength throughout No tremors - Psychiatric Exam Psychiatric exam: Normal Affect, Normal Mood - Skin Skin Exam: Dry, Normal Color, Warm Discharge Plan - Follow Up Plan Condition: SERIOUS Disposition: AGAINST MEDICAL ADVICE
== END 2018-11-27 10:34 | disposition left against medical advice (07) | DRG 761 ==
LOC: C.ER 09:58 → C.6T 13:10
PROVIDERS: ADMIT Hospitalist; ATTEND Hospitalist
DX: S06.5X9A Traumatic subdural hemorrhage with loss of consciousness of unspecified duration, initial encounter (principal); R55 Syncope and collapse; S01.01XA Laceration without foreign body of scalp, initial encounter; N40.1 Benign prostatic hyperplasia with lower urinary tract symptoms; R33.8 Other retention of urine; W18.30XA Fall on same level, unspecified, initial encounter; Y92.002 Bathroom of unspecified non-institutional (private) residence as the place of occurrence of the external cause

== ENCOUNTER 2018-12-08 13:35 | Emergency (ER) | payer MEDICAID ==
[2018-12-08 13:49] VITALS: BP 155/82; PULSE 60; TEMP 98.2; O2SAT 100
--- NOTE | 2018-12-08 14:47 | C.PDOC ---
History Of Present Illness 63 y/o male pt presents to the ER for wound check and evaristo removal. Pt was here on 11/25 for a laceration on the back of his head due to syncope. Pt had 17 evaristo placed. Pt has no other complaints or associated sx at this time. Time Seen by Provider: 12/08/18 14:10 Chief Complaint (Nursing): Wound Check History Per: Patient History/Exam Limitations: no limitations Onset/Duration Of Symptoms: Days Ago Past Medical History Reviewed: Historical Data, Nursing Documentation, Vital Signs Vital Signs: Last Vital Signs Temp 98.2 F 12/08/18 13:46 Pulse 60 12/08/18 13:46 Resp 16 12/08/18 13:46 BP 155/82 H 12/08/18 13:46 Pulse Ox 100 12/08/18 13:46 - Medical History PMH: Benign Prostatic Hyperplasia - [employer] Procedures INSERT INDWELLING CATH (04/18/15) Family History: States: Unknown Family Hx - Social History Hx Tobacco Use: No Hx Alcohol Use: No Hx Substance Use: No - Immunization History Hx Tetanus Toxoid Vaccination: Yes Hx Influenza Vaccination: Yes Hx Pneumococcal Vaccination: Yes Review Of Systems Constitutional: Positive for: Other (evaristo removal ). Negative for: Fever, Chills Gastrointestinal: Negative for: Nausea, Vomiting Skin: Negative for: Rash Neurological: Negative for: Weakness, Numbness Physical Exam - Physical Exam Appears: Non-toxic, No Acute Distress Skin: Warm, Dry, No Rash Head: Normacephalic, No Tenderness, No Swelling, No Abrasion, Other (right occipital 17 evaristo with crusty dry blood ) Cardiovascular: Rhythm Regular Respiratory: Normal Breath Sounds Neurological/Psych: Oriented x3, Normal Speech, Normal Cognition, Normal Motor, Normal Sensation, Other (neuro intact ) ED Course And Treatment O2 Sat by Pulse Oximetry: 100 (RA) Pulse Ox Interpretation: Normal Medical Decision Making Medical Decision Making: Plans: -- evaristo removal PROCEDURE: EVARISTO REMOVAL Performed by mi Location: right posterior occipital No deficits. Neurovascularly intact. Preparation: The wound was cleaned with NS and Betadine. The area was prepped and draped in the usual sterile fashion. Procedure: In total, 16 sutures were removed. Post-Procedure: Good closure and hemostasis. The patient tolerated the procedure well and there were no complications. Few evaristo were loose, patient notified that when his scab falls off, he should f/u with his doctor. Disposition Counseled Patient/Family Regarding: Diagnosis, Need For Followup - Disposition Disposition: HOME/ ROUTINE Disposition Time: 14:42 Condition: GOOD Additional Instructions: Radha un seguimiento con strickland neurlogo esta semana el jueves segn lo programado. Radha que el mdico examine la herida y busque un alimento adicional; Lave el matthew suavemente y deje que la costra se caiga jackie. Es probable que el ltimo elemento bsico se carol por s solo. Regrese a la ann-marie de emergencias para cualquier dolor de glo u otras preocupaciones. Follow up with your neurologist this week on as scheduled. Have doctor examine wound and look for additional staple; Wash hair gently and allow scab to fall off on its own. It is likely last staple fell out on its own. Return to ER for any headache or other concerns. Instructions: Staple Removal Forms: Gen Discharge Inst Frisian, [place] (Frisian) Print Language: SETSWANA - Clinical Impression Clinical Impression: Encounter for removal of evaristo - PA / [employer]CRA[employer] ENGINE [employer]CH[employer]IC / Resident Statement MD/ has reviewed & agrees with the documentation as recorded. - Scribe Statement The provider has reviewed the documentation as recorded by the Shabana Snyder Do All medical record entries made by the Scribe were at my direction and personally dictated by me. I have reviewed the chart and agree that the record accurately reflects my personal performance of the history, physical exam, medical decision making, and the department course for this patient. I have also personally directed, reviewed, and agree with the discharge instructions and disposition.
[2018-12-08 14:50] VITALS: RESP 20
== END 2018-12-08 14:49 | disposition home or self-care (01) ==
LOC: C.ER 13:35
DX: Z48.02 Encounter for removal of sutures (principal)

== ENCOUNTER 2018-12-18 17:19 | Emergency (ER) | payer MEDICAID ==
[2018-12-18 18:36] LABS: URINE BILIRUBIN NEGATIVE (NEGATIVE); URINE BLOOD NEGATIVE (NEGATIVE); URINE CLARITY Clear (Clear); URINE COLOR Yellow (YELLOW); URINE GLUCOSE (UA) NORMAL (Normal); URINE LEUKOCYTE ESTERASE NEG Leu/uL (Negative); URINE PROTEIN NEGATIVE (NEGATIVE); URINE UROBILINOGEN NORMAL mg/dL (0.2-1.0)
--- NOTE | 2018-12-18 18:58 | C.PDOC ---
History Of Present Illness 63 year old male with Hx of BPH presents with difficulty urinating since this morning. Patient came in for a smith, states he usually gets a smith to help him urinate. Denies abdominal fullness, constipation, diarrhea, or painful urinations. No back pain or fever. No trauma or fall. Time Seen by Provider: 12/18/18 18:58 Chief Complaint (Nursing): Male Genitourinary History Per: Patient History/Exam Limitations: no limitations Onset/Duration Of Symptoms: Hrs Current Symptoms Are (Timing): Still Present Quality Of Discomfort: Unable To Describe Associated Symptoms: denies: Other (Abdominal fullness, constipation, diarrhea, painful urination) Recent travel outside of the [place]: No Past Medical History Reviewed: Historical Data, Nursing Documentation, Vital Signs Vital Signs: Last Vital Signs Temp 98 F 12/18/18 17:36 Pulse 64 12/18/18 17:36 Resp 18 12/18/18 17:36 BP 158/88 H 12/18/18 17:36 Pulse Ox 98 12/18/18 17:36 - Medical History PMH: Benign Prostatic Hyperplasia - [employer] [facility] Procedures INSERT INDWELLING CATH (04/18/15) Family History: States: Unknown Family Hx - Social History Hx Tobacco Use: No Hx Alcohol Use: No Hx Substance Use: No - Immunization History Hx Tetanus Toxoid Vaccination: Yes Hx Influenza Vaccination: Yes Hx Pneumococcal Vaccination: Yes Review Of Systems Constitutional: Negative for: Fever, Chills, Weakness, Malaise Eyes: Negative for: Pain, Vision Change ENT: Negative for: Ear Pain, Ear Discharge, Nose Congestion, Mouth Pain, Throat Pain Cardiovascular: Negative for: Chest Pain, Palpitations, Edema Respiratory: Negative for: Cough, Shortness of Breath Gastrointestinal: Negative for: Nausea, Vomiting, Diarrhea, Constipation Genitourinary: Negative for: Dysuria, Frequency, Incontinence, Hematuria, Penile Discharge, Scrotal Pain, Rash, Penile Pain Musculoskeletal: Negative for: Neck Pain, Shoulder Pain Skin: Negative for: Rash Neurological: Negative for: Weakness, Numbness Psych: Negative for: Anxiety Physical Exam - Physical Exam Appears: Well, Non-toxic, No Acute Distress Skin: Normal Color, Warm, Dry Head: Atraumatic, Normacephalic Eye(s): bilateral: Normal Inspection, PERRL, EOMI Oral Mucosa: Moist Lips: Normal Appearing Neck: Normal, Supple, Other (no meningeal signs) Chest: Symmetrical, No Tenderness Cardiovascular: Rhythm Regular Respiratory: Normal Breath Sounds, No Rales, No Rhonchi, No Wheezing Gastrointestinal/Abdominal: Soft, No Tenderness, No Organomegaly, No Mass, No Guarding, No Rebound, No Hernia, No Ascites, Other (Suprapubic fullness, nontender after smith) Back: Normal Inspection, No CVA Tenderness, No Vertebral Tenderness, No Muscle Spasm, No Paraspinal Tenderness Male Genital: Normal Inspection, No Scrotal Swelling Extremity: Normal ROM, No Swelling Neurological/Psych: Oriented x3, Normal Speech, Normal Cognition Gait: Steady ED Course And Treatment - Laboratory Results Lab Results: Urine Color Yellow (YELLOW) 12/18/18 18:25 Urine Clarity Clear (Clear) 12/18/18 18:25 Urine pH 6.0 (5.0-8.0) 12/18/18 18:25 Ur Specific [place] 1.008 (1.003-1.030) 12/18/18 18:25 Urine Protein Negative mg/dL (NEGATIVE) 12/18/18 18:25 Urine Glucose (UA) Normal mg/dL (Normal) 12/18/18 18:25 Urine Ketones Negative mg/dL (NEGATIVE) 12/18/18 18:25 Urine Blood Negative (NEGATIVE) 12/18/18 18:25 Urine Nitrate Negative (NEGATIVE) 12/18/18 18:25 Urine Bilirubin Negative (NEGATIVE) 12/18/18 18:25 Urine Urobilinogen Normal mg/dL (0.2-1.0) 12/18/18 18:25 Ur Leukocyte Esterase Neg Charan/uL (Negative) 12/18/18 18:25 Urine WBC (Auto) < 1 /hpf (0-5) 12/18/18 18:25 Urine RBC (Auto) 1 /hpf (0-3) 12/18/18 18:25 O2 Sat by Pulse Oximetry: 98 (Room air) Pulse Ox Interpretation: Normal Medical Decision Making Medical Decision Makin yr old male p/w complaint of urinary retention, hx of BPH And similiar complaints in the past relieved w/ smith placement. No constipation or abdominal fullness. No dysuria or painful urination prior to urinary retention. No back pain. No encoparesis or saddle anesthesia. Likely BPH w/ urinary retention w/ out prostatitis. Smith placed, patient with immediate relief, states he will follow up with his urologist. Clear for d/c home with return indications and f/u. Pt agreeable to plan. Disposition - Disposition Referrals: Edwina Mackenzie MD [Staff Provider] - [facility] [Outside] [facility] [Outside] [facility] [Outside] Disposition: HOME/ ROUTINE Disposition Time: 19:53 Condition: GOOD Additional Instructions: FOLLOW UP WITH YOUR UROLOGIST IN [facility]. OR GO SEE ONE WE HAVE RECCOMENDED. RETURN IF YOU HAVE ANY FEVER. BACK PAIN OR ANY OTHER ISSUES KEYUR BENJAMIN, thank you for letting us take care of you today. Your provider was Stefano Babb and you were treated for UNABLE TO URINATE. The emergency medical care you received today was directed at your acute symptoms. If you were prescribed any medication, please fill it and take as directed. It may take several days for your symptoms to resolve. Return to the Emergency Department if your symptoms worsen, do not improve, or if you have any other problems. Please contact your doctor or call one of the physicians/clinics you have been referred to that are listed on the Patient Visit Information form that is included in your discharge packet. Bring any paperwork you were given at discharge with you along with any medications you are taking to your follow up visit. Our treatment cannot replace ongoing medical care by a primary care provider outside of the emergency department. Thank you for allowing the [employer] [facility] team to be part of your care today. If you had an X-Ray or CT scan: A Radiologist will review the ED reading if any change in treatment is needed we will contact you. If you had a blood, urine, or wound culture: It will take several days for the results, if any change in treatment is needed we will contact you. If you had an STI test: It will take 48 hours for the results. Please call after 1 week if you have not heard back. Instructions: Smith Catheter, Male, Urinary Retention (DC) Forms: [facility] ([place]) - Clinical Impression Clinical Impression: Urinary retention, Urinary catheter insertion/adjustment/removal - Scribe Statement The provider has reviewed the documentation as recorded by the Scribe Manuel Mcdonald All medical record entries made by the Scribe were at my direction and personally dictated by me. I have reviewed the chart and agree that the record accurately reflects my personal performance of the history, physical exam, medical decision making, and the department course for this patient. I have also personally directed, reviewed, and agree with the discharge instructions and disposition.
[2018-12-18 19:52] VITALS: BP 123/71; PULSE 54; RESP 16; TEMP 98
[2018-12-18 19:55] VITALS: O2SAT 98
== END 2018-12-18 19:45 | disposition home or self-care (01) ==
LOC: C.ER 17:19
DX: R33.9 Retention of urine, unspecified (principal)